=== PATIENT | female | born 1990 | race Caucasian/White ===

== ENCOUNTER 2017-09-16 14:29 | Emergency (ER) | payer OTHER ==
--- NOTE | 2017-09-16 15:11 | UC ---
Ear Complaint HPI - HPI Summary HPI Summary: 27 year old female presents with complains of left ear fullness. - History of Current Complaint Chief Complaint: UCEar Stated Complaint: RT EAR PLUGGED Time Seen by Provider: 09/16/17 15:10 Hx Obtained From: Patient Onset/Duration: Sudden Onset Severity Initially: Moderate Severity Currently: Moderate Pain Scale Used: 0-10 Numeric - 5 - Allergies/Home Medications Allergies/Adverse Reactions: Allergies Allergy/AdvReac Type Severity Reaction Status Date / Time Adhesive Tape Allergy See Comment Verified 09/16/17 15:03 Ibuprofen Allergy See Comment Verified 09/16/17 15:03 Latex Allergy Rash Verified 09/16/17 15:03 PMH/Surg Hx/FS Hx/Imm Hx Previously Healthy: Yes - Surgical History Surgical History: Yes Surgery Procedure, Year, and Place: HYSTERECTOMY. TUBAL. . TEAR DUCTS INFANT - Social History Alcohol Use: Occasionally Substance Use Type: None Smoking Status (MU): Current Every Day Smoker Type: Cigarettes Amount Used/How Often: 1/2 PPD - Immunization History Most Recent Influenza Vaccination: NO Review of Systems Constitutional: Negative Skin: Negative Eyes: Negative ENT: Ear Ache Respiratory: Negative Cardiovascular: Negative Gastrointestinal: Negative Genitourinary: Negative Motor: Negative Neurovascular: Negative Musculoskeletal: Negative Neurological: Negative Psychological: Negative All Other Systems Reviewed And Are Negative: Yes Physical Exam Triage Information Reviewed: Yes Vital Signs: Initial Vital Signs Temp 36.6 C 09/16/17 15:04 Pulse 94 09/16/17 15:04 Resp 16 09/16/17 15:04 BP 123/79 09/16/17 15:04 Pulse Ox 100 09/16/17 15:04 Vital Signs Reviewed: Yes Eye Exam: Normal ENT: Positive: Other - fluid in left ear Dental Exam: Normal Neck exam: Normal Neck: Positive: 1 Respiratory Exam: Normal Cardiovascular Exam: Normal Abdominal Exam: Normal Musculoskeletal Exam: Normal Neurological Exam: Normal Psychological Exam: Normal Skin Exam: Normal Ear Complaint Course/Dx - Differential Dx/Diagnosis Provider Diagnoses: left middle ear fluid Discharge - Discharge Plan Condition: Stable Disposition: HOME Prescriptions: Methylprednisolone [Medrol Dosepak 4 MG*] 4 mg PO .SEE TOLU INSTRUCTION #21 tab Neomyc/Polym/HC 1% OTIC SUSP* [Cortisporin Otic Susp 1%*] 4 drop RIGHT EAR QID # 1 btl Patient Education Materials: Earache (ED) Referrals: Graham Kent MD [Medical Doctor] -
== END 2017-09-16 15:18 | disposition home or self-care (01) ==
LOC: UCCORT 14:29
DX: H74.8X2 Other specified disorders of left middle ear and mastoid (principal); Z88.6 Allergy status to analgesic agent; Z91.040 Latex allergy status; Z91.048 Other nonmedicinal substance allergy status; F17.210 Nicotine dependence, cigarettes, uncomplicated
CPT/HCPCS: 99202; G0463

== ENCOUNTER 2018-02-07 18:49 | Emergency (ER) | payer OTHER ==
[2018-02-07 19:30] VITALS: BP 120/77
[2018-02-07] MEDS ORDERED: Naproxen TAB* 250 MG PO ONE (20:08)
--- NOTE | 2018-02-07 20:18 | UC ---
Back Pain HPI - HPI Summary HPI Summary: 28 yo female with the onset on mid and lower back pain yesterday now with left lat neck pain as well no fever no injury states gayle makes her shake violently but she can take naprosyn - History of Current Complaint Chief Complaint: UCBackPain Stated Complaint: BACK/NECK PAIN Time Seen by Provider: 02/07/18 20:03 Hx Obtained From: Patient Hx Last Menstrual Period: 2012 Onset/Duration: Gradual Onset, Lasting Hours Timing: Constant Severity Initially: Moderate Severity Currently: Severe Pain Intensity: 9 Pain Scale Used: 0-10 Numeric Back Pain: Is Diffuse Character: Throbbing, Spasmodic Aggravating Factor(s): Movement, Lifting, Bending Alleviating Factor(s): Rest Associated Signs And Symptoms: Positive: Negative Related History: Similar Episode Dx As - back strain - Allergies/Home Medications Allergies/Adverse Reactions: Allergies Allergy/AdvReac Type Severity Reaction Status Date / Time Adhesive Tape Allergy See Comment Verified 02/07/18 19:18 ibuprofen Allergy See Comment Verified 02/07/18 19:18 latex Allergy Rash Verified 02/07/18 19:18 Home Medications: Home Medications Diclofenac 1% GEL (NF) [Voltaren 1% GEL (NF)] 1 applic QID 02/07/18 [History Confirmed 02/07/18] Chadron Carbonate TAB* 450 mg QAM 02/07/18 [History Confirmed 02/07/18] Sertraline* [Zoloft*] 50 mg QAM 02/07/18 [History Confirmed 02/07/18] hydrOXYzine HCL TAB* [Atarax 25 MG TAB*] 25 mg TID PRN 02/07/18 [History Confirmed 02/07/18] PMH/Surg Hx/FS Hx/Imm Hx Previously Healthy: Yes Psychological History: Bipolar Disorder - Surgical History Surgical History: Yes Surgery Procedure, Year, and Place: HYSTERECTOMY. TUBAL. . TEAR DUCTS - Family History Known Family History: Positive: Hypertension - Social History Alcohol Use: None Substance Use Type: None Smoking Status (MU): Current Every Day Smoker Type: Cigarettes Amount Used/How Often: 1/2 PPD Cessation Counseling: Patient Advised to Stop - Immunization History Most Recent Influenza Vaccination: NO Review of Systems Constitutional: Negative Skin: Negative Eyes: Negative ENT: Negative Respiratory: Negative Cardiovascular: Negative Gastrointestinal: Negative Genitourinary: Negative Motor: Negative Neurovascular: Negative Musculoskeletal: Myalgia Neurological: Negative Psychological: Negative Is Patient Immunocompromised?: No All Other Systems Reviewed And Are Negative: Yes Physical Exam Triage Information Reviewed: Yes Appearance: Well-Appearing, No Pain Distress, Well-Nourished Vital Signs: Initial Vital Signs Temp 98.3 F 02/07/18 19:19 Pulse 81 02/07/18 19:19 Resp 16 02/07/18 19:19 BP 120/77 02/07/18 19:19 Pulse Ox 100 02/07/18 19:19 Vital Signs Reviewed: Yes Eyes: Positive: Conjunctiva Clear ENT: Positive: Hearing grossly normal. Negative: Nasal congestion, Nasal drainage, Trismus, Muffled voice, Hoarse voice Neck: Positive: Tenderness @ - left trap Respiratory: Positive: Normal breath sounds, No respiratory distress, No accessory muscle use, Respiratory distress Cardiovascular: Positive: RRR, No Murmur Musculoskeletal: Positive: ROM Limited @ - shoulders Neurological: Positive: Alert Psychological Exam: Normal Skin Exam: Normal Back Pain Course/Dx - Differential Dx/Diagnosis Provider Diagnoses: trapezius strain (L). rhomboid strain Discharge - Sign-Out/Discharge Documenting (check all that apply): Discharge - Discharge Plan Condition: Stable Disposition: HOME Prescriptions: Cyclobenzaprine TAB* [Flexeril TAB*] 5 - 10 mg PO TID PRN #12 tab PRN Reason: Spasms Naproxen 375 mg PO BID PRN #14 tablet.dr SANTANA Reason: Pain Patient Education Materials: Cervical Strain (ED), Soft Cervical Collar (ED), Back Pain (ED) Referrals: Gab Starkey PA [Primary Care Provider] - 1 Day (as planned) Additional Instructions: hold off on using the voltaren gel while on naproxen - Billing Disposition and Condition Condition: STABLE Disposition: HOME
== END 2018-02-07 20:27 | disposition home or self-care (01) ==
LOC: UCCORT 18:49
DX: S46.812A Strain of other muscles, fascia and tendons at shoulder and upper arm level, left arm, initial encounter (principal); X58.XXXA Exposure to other specified factors, initial encounter; Y93.9 Activity, unspecified; Y92.9 Unspecified place or not applicable; Z88.6 Allergy status to analgesic agent; Z91.040 Latex allergy status; Z91.048 Other nonmedicinal substance allergy status
CPT/HCPCS: 99213; A9270-GY; G0463

== ENCOUNTER 2018-07-13 18:28 | Emergency (ER) | payer OTHER ==
[2018-07-13 19:54] VITALS: BP 121/78
--- NOTE | 2018-07-14 09:26 | UC ---
Discharge - Sign-Out/Discharge Documenting (check all that apply): Post-Discharge Follow Up All imaging exams completed and their final reports reviewed: No Studies - Discharge Plan Condition: Stable Disposition: LEFT WITHOUT BEING SEEN Referrals: Gab Starkey PA [Primary Care Provider] - - Billing Disposition and Condition Condition: STABLE Disposition: Left Without Being Seen
== END 2018-07-13 20:06 | disposition left against medical advice (07) ==
LOC: UCCORT 18:28
DX: Z53.21 Procedure and treatment not carried out due to patient leaving prior to being seen by health care provider (principal)

== ENCOUNTER 2018-08-10 20:50 | Emergency (ER) | payer OTHER ==
[2018-08-10 21:22] VITALS: BP 129/73
--- NOTE | 2018-08-10 21:34 | ED ---
Upper Extremity Pain - HPI Summary HPI Summary: 28 yr old with right wrist injury. She slammed in door caught by wind. Pain over the distal radius and ulna. no bruise, laceration, sts. Injury occurred at 2030 today. Pain is moderate. - History of Current Complaint Chief Complaint: UCUpperExtremity Stated Complaint: RIGHT WRIST INJURY Hx Last Menstrual Period: 2012 - Allergies/Home Medications Allergies/Adverse Reactions: Allergies Allergy/AdvReac Type Severity Reaction Status Date / Time Adhesive Tape Allergy See Comment Verified 08/10/18 21:15 ibuprofen Allergy See Comment Verified 08/10/18 21:15 latex Allergy Rash Verified 08/10/18 21:15 PMH/Surg Hx/FS Hx/Imm Hx Respiratory History: Reports: Hx Asthma - Surgical History Surgery Procedure, Year, and Place: HYSTERECTOMY. TUBAL. . TEAR DUCTS Infectious Disease History: No Infectious Disease History: Denies: Traveled Outside the [place] in Last 30 Days - Family History Known Family History: Positive: Hypertension - Social History Alcohol Use: Rare Substance Use Type: Reports: None Smoking Status (MU): Current Every Day Smoker Type: Cigarettes Amount Used/How Often: 1/2 PPD Length of Time of Smoking/Using Tobacco: 17 yrs Review of Systems Positive: Other - right wrist pain All Other Systems Reviewed And Are Negative: Yes Physical Exam Triage Information Reviewed: Yes Vital Signs On Initial Exam: Initial Vitals Temp Pulse Resp BP Pulse Ox 98.7 F 100 16 129/73 100 08/10/18 21:16 08/10/18 21:16 08/10/18 21:16 08/10/18 21:16 08/10/18 21:16 Vital Signs Reviewed: Yes Appearance: Positive: Well-Appearing, No Pain Distress Skin: Positive: Warm, Skin Color Reflects Adequate Perfusion Head/Face: Positive: Normal Head/Face Inspection ENT: Positive: Normal ENT inspection Respiratory/Lung Sounds: Positive: Clear to Auscultation Cardiovascular: Positive: RRR, Pulses are Symmetrical in both Upper and Lower Extremities Abdomen Description: Negative: Distended Musculoskeletal: Positive: Other - tender over the distal radius and distal ulna , but no deformity, no swelling, no bruise, no laceration. Neurological: Positive: Sensory/Motor Intact, Alert, Oriented to Person Place, Time, CN Intact II-III Psychiatric: Positive: Normal - [place] Coma Scale Best Eye Response: 4 - Spontaneous Best Motor Response: 6 - Obeys Commands Best Verbal Response: 5 - Oriented Coma Scale Total: 15 Diagnostics - Vital Signs Vital Signs Temp Pulse Resp BP Pulse Ox 08/10/18 21:16 98.7 F 100 16 129/73 100 - Laboratory Lab Statement: Any lab studies that have been ordered have been reviewed, and results considered in the medical decision making process. Course/Dx - Course Course Of Treatment: contusion right wrist. nurses applied premade wrist splint Follow up with pmd - Diagnoses Provider Diagnoses: Contusion of wrist, right Discharge - Sign-Out/Discharge Documenting (check all that apply): Patient Departure All imaging exams completed and their final reports reviewed: No - Discharge Plan Condition: Good Disposition: HOME Patient Education Materials: Contusion in Adults (ED) Forms: *Work Release Referrals: Gab Starkey PA [Primary Care Provider] - 2 Days - Billing Disposition and Condition Condition: GOOD Disposition: Home
[2018-08-10] MEDS ORDERED: Acetaminophen TAB* 325 MG PO ONE (21:36)
--- NOTE | 2018-08-11 08:13 | RAD ---
HISTORY: pain, right wrist injury COMPARISONS: None VIEWS: 3 , Frontal, lateral, and oblique views of the right wrist FINDINGS: BONE DENSITY: Normal. BONES: There is no displaced fracture. JOINTS: There is no arthropathy. ALIGNMENT: There is no dislocation. SOFT TISSUES: Unremarkable. OTHER FINDINGS: None. IMPRESSION: NO ACUTE OSSEOUS INJURY. IF SYMPTOMS PERSIST, RECOMMEND REPEAT IMAGING. R0
--- NOTE | 2018-08-11 08:28 | ED ---
Progress - Progress Note Progress Note: No fx. Final read reviewed. Course/Dx - Course Course Of Treatment: contusion right wrist. nurses applied premade wrist splint Follow up with pmd - Diagnoses Provider Diagnoses: Contusion of wrist, right Discharge - Sign-Out/Discharge Documenting (check all that apply): Post-Discharge Follow Up All imaging exams completed and their final reports reviewed: Yes - Discharge Plan Condition: Good Disposition: HOME Patient Education Materials: Contusion in Adults (ED) Forms: *Work Release Referrals: Gab Starkey PA [Primary Care Provider] - 2 Days - Billing Disposition and Condition Condition: GOOD Disposition: Home
== END 2018-08-10 21:50 | disposition home or self-care (01) ==
LOC: UCCORT 20:50
DX: S60.211A Contusion of right wrist, initial encounter (principal); W23.0XXA Caught, crushed, jammed, or pinched between moving objects, initial encounter; Y92.9 Unspecified place or not applicable
CPT/HCPCS: 99213; A9270-GY; G0463